=== PATIENT | female | born 1950 | race Caucasian/White ===

== ENCOUNTER 2022-09-30 17:01 | Inpatient (IN) | payer OTHER ==
[~2022-09-30] VITALS: Ht 170.1 cm; Wt 54.4 kg
[2022-09-30 17:01] VITALS: BP 123/76
[~2022-09-30 17:01] MED LIST: ALPRAZOLAM0.5 M3 PO; ASPIRIN ADULT L81 M1 PO; ATORVASTATIN CA40 M1 PO; DIGOXIN125 MCG PO; DILTIAZEM HCL120 MG PO; FEROSUL325 M1 PO; FUROSEMIDE40 MG PO; IBUPROFEN600 MG PO; IMDUR SA30 MG PO; LISINOPRIL40 MG PO; METOPROLOL SUCC50 M1 PO; OMNICEF300 MG PO; PERCOCET 10-321 EACH PO; SENEXON-S 50-81 EACH PO
[2022-09-30] MEDS ORDERED: TYLENOL325 M1 PO (17:33)
[2022-09-30] MEDS ORDERED: MIRALAX119 GM PO (17:34)
[2022-09-30] MEDS ORDERED: MILK OF MA400 MG/51 PO (17:35)
[2022-09-30] MEDS ORDERED: PERCOCET 5-3251 EACH PO (17:36)
[2022-09-30] MEDS ORDERED: PROVENTIL HFA6.7 GM INH (17:37)
[2022-09-30] MEDS ORDERED: XANAX0.5 MG PO (17:39)
[2022-09-30] MEDS ORDERED: RISPERIDONE M-0.5 MG PO (17:39)
[2022-10-01 13:39] VITALS: BP 123/76
[2022-10-01 20:00] VITALS: BP 98/48
[2022-10-02 07:22] VITALS: BP 139/77
[2022-10-02 20:00] VITALS: BP 121/56
[2022-10-03 07:22] VITALS: BP 123/55; BP 134/69
[2022-10-03 20:00] VITALS: BP 102/67
[2022-10-04 07:25] VITALS: BP 122/60
[2022-10-04 20:00] VITALS: BP 100/54
[2022-10-05 07:18] VITALS: BP 121/80
[2022-10-05 20:00] VITALS: BP 101/59
[2022-10-06 08:05] VITALS: BP 109/61
[2022-10-06 20:00] VITALS: BP 101/60
[2022-10-07 07:33] VITALS: BP 89/48
[2022-10-07 07:35] VITALS: BP 72/42
[2022-10-07 10:17] VITALS: BP 102/68
[2022-10-07 13:13] VITALS: BP 102/60
[2022-10-07 16:01] VITALS: BP 104/52
[2022-10-08 07:44] VITALS: BP 115/69
[2022-10-08 20:00] VITALS: BP 124/64
[2022-10-09 07:39] VITALS: BP 117/66
[2022-10-09 20:00] VITALS: BP 124/77
[2022-10-10 06:48] LABS: BASO % 0.3 % (0.0-1.0); EOS # 0.1 10*3/uL (0.0-0.4); EOS % 1.8 % (1.0-4.0); HEMATOCRIT 33.7 % (37.0-47.0); LYMPH # 0.9 10*3/uL (1.3-4.4); MEAN CELL VOLUME 91.1 fl (81.0-99.0); MEAN CORPUSCULAR HGB CONC 32.9 g/dl (33.0-37.0); MEAN PLATELET VOLUME 10.3 fl (9.6-12.3); MONO # 0.4 10*3/uL (0.1-1.0); MONO % 11.3 % (3.0-9.0); NEUT % 60.3 % (47.0-73.0); PLATELET COUNT AUTOMATED 132 10*3/uL (130-400); RED CELL DISTRI WIDTH 14.5 % (0-14.5); WHITE BLOOD COUNT 3.4 10*3/uL (4.8-10.8)
[2022-10-10 07:25] LABS: BUN 11 mg/dl (9-23); CHLORIDE 105 mmol/L (98-107); POTASSIUM 3.8 mmol/L (3.4-5.1)
[2022-10-10 07:41] VITALS: BP 114/60
[2022-10-11 07:27] VITALS: BP 104/65
[2022-10-11 09:44] VITALS: BP 80/50
[2022-10-11 14:51] VITALS: BP 90/50
[2022-10-11 20:10] VITALS: BP 118/84
[2022-10-12 08:22] VITALS: BP 98/52
[2022-10-12 09:37] VITALS: BP 94/60
[2022-10-12 10:47] VITALS: BP 118/64
[2022-10-12 20:00] VITALS: BP 122/86
[2022-10-13] MEDS ORDERED: CLONAZEPAM1 MG PO (07:00)
[2022-10-13] MEDS ORDERED: LITHIUM CARB300 MG PO (07:00)
[2022-10-13] MEDS ORDERED: CLONAZEPAM0.5 M2 PO (07:00)
[2022-10-13] MEDS ORDERED: PALIPERIDONE ER6 MG PO (07:00)
[2022-10-13 07:30] VITALS: BP 90/46
== END 2022-10-13 17:18 | DRG 885 ==
LOC: 3N 17:01
PROVIDERS: Registered Nurse; ADMIT Psychiatry & Neurology Psychiatry; ATTEND Psychiatry & Neurology Psychiatry
DX: F23 Brief psychotic disorder (principal); I11.0 Hypertensive heart disease with heart failure; E44.0 Moderate protein-calorie malnutrition; Z68.1 Body mass index [BMI] 19.9 or less, adult; I50.9 Heart failure, unspecified; F22 Delusional disorders; Z66 Do not resuscitate; M19.90 Unspecified osteoarthritis, unspecified site; F41.1 Generalized anxiety disorder; I48.0 Paroxysmal atrial fibrillation; Z51.5 Encounter for palliative care; Z82.49 Family history of ischemic heart disease and other diseases of the circulatory system